=== PATIENT | female | born 1950 | race Caucasian/White ===

== ENCOUNTER 2019-01-27 08:32 | Outpatient (CLI) | payer MEDICARE ==
--- NOTE | 2019-01-27 14:05 | NM ---
Nuclear medicine Yonathan brain scan: DATE: 01/27/2019 HISTORY: 68-year-old female with gait disorder, recurrent falls, and parkinsonian features. TECHNIQUE: 130 mg potassium iodide administered by mouth prior to injection of radiopharmaceutical. 4.6 mCi I-123 Ioflupane injected IV. 3 hours later, SPECT images of brain performed. FINDINGS: There is symmetrical normal uptake in the bilateral caudate nuclei. There is very weak uptake in the bilateral putamen. IMPRESSION: Abnormal scan consistent with early parkinsonism.
== END 2019-01-27 08:33 | disposition home or self-care (01) ==
LOC: NM 08:32
PROVIDERS: ATTEND Psychiatry & Neurology Neurology
DX: R26.9 Unspecified abnormalities of gait and mobility (principal); R29.6 Repeated falls; R25.9 Unspecified abnormal involuntary movements; G20 Parkinson's disease
CPT/HCPCS: 78607; A9584

== ENCOUNTER 2023-11-26 07:58 | Day surgery (SDC) | payer MEDICARE ==
[2023-11-25 10:29] VITALS: BMI 20.5
[2023-11-26] MEDS ORDERED: EPINEPHrine 1 MG/ML VIAL ONE (09:08)
[2023-11-26] MEDS ORDERED: Rocuronium Bromide 10 MG/ML (10ML VIAL) ONE (09:23)
[2023-11-26] MEDS ORDERED: PROPOFOL 40 ML ONE (09:23)
[2023-11-26] MEDS ORDERED: fentaNYL PF 100 MCG/2 ML SYRINGE ONE (09:23)
[2023-11-26] MEDS ORDERED: Lidocaine 1% PF 5 ML VIAL ONE (09:23)
[2023-11-26] MEDS ORDERED: Ondansetron PF 4 MG/2 ML Vial ONE (09:23)
[2023-11-26] MEDS ORDERED: SUGAMMADEX SODIUM 200 MG/2 ML VIAL ONE (09:23)
== END 2023-11-26 12:58 | disposition home or self-care (01) ==
LOC: SDC 07:58
PROVIDERS: ATTEND Specialist
PROC: 3E0F83Z Introduction of Anti-inflammatory into Respiratory Tract, Via Natural or Artificial Opening Endoscopic (ICD-10-PCS; principal; 2023-11-26)
DX: J38.3 Other diseases of vocal cords (principal); R49.0 Dysphonia; G20.A1 Parkinson's disease without dyskinesia, without mention of fluctuations
CPT/HCPCS: 31571; J0171; J2405; J2704; L8607